=== PATIENT | female | born 1960 | race Caucasian/White ===

== ENCOUNTER → 2020-08-15 00:15 | Outpatient (CLI) | payer MEDICARE, OTHER, SELFPAY ==
[2020-08-15 17:12] LABS: SARS-CoV-2 RNA PCR Negative
== END ==
PROVIDERS: PCP Obstetrics & Gynecology; Visit Provider Urology
DX: Z01.812 Encounter for preprocedural laboratory examination (principal); Z20.822 Contact with and (suspected) exposure to COVID-19
CPT/HCPCS: C9803; U0003; U0005

== ENCOUNTER 2020-08-15 07:44 | Outpatient (CLI) | payer MEDICARE, OTHER, SELFPAY | END 2020-08-15 07:45 | disposition home or self-care (01) | PROVIDERS: Visit Provider Urology | DX: R32 Unspecified urinary incontinence (principal); Z01.818 Encounter for other preprocedural examination | CPT/HCPCS: 87086; 87088; C9803; U0003; U0005 ==

== ENCOUNTER 2020-08-18 00:46 | Day surgery (SDC) | payer MEDICARE, OTHER, SELFPAY ==
[2020-08-09 14:29] VITALS: BMI 24.0
--- NOTE | 2020-08-14 18:57 | P.HP_ITS ---
H&P: HPI History of Present Illness Date/Time: 08/14/20 18:57 60 yo with TYESHA Chief Complaint: umana Review of Systems Review of Systems: All systems reviewed & are unremarkable except as noted in HPI and below [facility] [place] Social History Social History Smoking status: Former smoker Tobacco type: cigarettes Smoking end date: 02/17/07 Additional smoking assessment comments: cigarrettes 1 ppd x20 years Alcohol intake: current Drinks per week: 2 Substance use: never Spiritual care concerns: No Meds Home Medications and Allergies Home Medications Medication Instructions Recorded Confirmed Type celecoxib 200 mg PO DAILY 08/09/20 08/09/20 History citalopram 20 mg PO DAILY 08/09/20 08/09/20 History lactobacillus combination no.4 3,000 mmu cells PO DAILY 08/09/20 08/09/20 History [Probiotic] mirabegron [Myrbetriq] 25 mg PO DAILY 08/09/20 08/09/20 History xwkzftghnznn-hec-qqch-FA-vit K 1 tab-cap PO DAILY 08/09/20 08/09/20 History [Multi For Her] sumatriptan succinate 50 mg PO PRN 08/09/20 08/09/20 History zolpidem [Ambien] 5 mg PO HS 08/09/20 08/09/20 History Allergies Allergy/AdvReac Type Severity Reaction Status Date / Time No Known Allergies Allergy Verified 08/09/20 14:09 Exam Const: General: cooperative HENMT: Head: normal to inspection Resp: Effort & Inspection: normal respiratory effort and able to speak in complete sentences Skin: General skin exam: normal color Psych: Appearance: grossly normal Assessment and Plan Assessment and plan (1) TYESHA (stress urinary incontinence, female): Code(s): N39.3 - Stress incontinence (female) (male) Status: Acute Assessment and Plan: urethral sling
[2020-08-18 05:57] VITALS: BP 121/73; PULSE 74; RESP 20; TEMP 36.2; O2SAT 98
[2020-08-18] MEDS: LACTATED RINGERS 1,000 ML 30 ML IV CONT (06:25)
--- NOTE | 2020-08-18 06:36 | WPDANESEPPF ---
Anes - Initial Pre Proc Eval Procedure: Operation Date: 08/18/20 07:30 Proposed Procedures p Urethral Sling - Rubén Robbins MD Date/Time: 08/18/20 06:36 Surgeon: Rubén Robbins MD Pre Op Diagnosis: stress incontinence Patient Data Age: 60 Gender: F Height: 1.63 m Weight: 63.7 kg Last Vital Signs Temp 36.2 C L 08/18/20 05:57 Pulse 74 08/18/20 05:57 Resp 20 08/18/20 05:57 BP 121/73 08/18/20 05:57 Pulse Ox 98 08/18/20 05:57 Allergies Allergy/AdvReac Type Severity Reaction Status Date / Time No Known Allergies Allergy Verified 08/18/20 06:12 Home Medications Medication Instructions Recorded Confirmed Type celecoxib 200 mg PO DAILY 08/09/20 08/18/20 History citalopram 20 mg PO DAILY 08/09/20 08/18/20 History lactobacillus combination no.4 3,000 mmu cells PO DAILY 08/09/20 08/18/20 History [Probiotic] mirabegron [Myrbetriq] 25 mg PO DAILY 08/09/20 08/18/20 History qizlvobpenfw-cdh-tqmr-FA-vit K 1 tab-cap PO DAILY 08/09/20 08/18/20 History [Multi For Her] sumatriptan succinate 50 mg PO PRN 08/09/20 08/09/20 History zolpidem [Ambien] 5 mg PO HS 08/09/20 08/18/20 History Patient hx anesthesia problems: none Family hx anesthesia problems: none [facility] Past Medical History Medical History (Updated 08/18/20 @ 06:40 by Timur Evans MD) Chronic back pain Surgical History Surgical History (Updated 08/18/20 @ 06:40 by Timur Evans MD) H/O cervical spine surgery H/O lumbosacral spine surgery Social History Social History Smoking status: Former smoker Tobacco type: cigarettes Smoking end date: 02/17/07 Additional smoking assessment comments: cigarrettes 1 ppd x20 years Alcohol intake: current Drinks per week: 2 Alcohol use details: socially Substance use: never Living arrangements: with family Spiritual care concerns: No Anes - Eval Final PreProcedure Day of Procedure 08/18/20 06:36 Patient weight: normal Heart: regular rate and rhythm Lungs: clear to auscultation Airway: Mallampati scale class 1 Neurological: alert and oriented Last oral intake: >/= 8 hours ASA classification: III Emergent: no Anesthetic plan: proceed Anesthesia type and monitoring: general GIVS and standard monitoring Informed Consent: The patient's anesthetic plan and its attendant risks and benefits were discussed with the patient/family/POA. Questions were solicited and answers provided to the satisfaction of the patient/family/POA.
--- NOTE | 2020-08-18 07:18 | WPDHPUPDATE1 ---
History and Physical Update Update Date/Time: 08/18/20 07:18 History and Physical has been reviewed, including an updated exam of the patient. There are NO changes in the patient's condition. Risks, benefits, and alternatives have been discussed and questions answered. Patient agrees to proceed with procedure.
[2020-08-18] MEDS: ceFAZolin 2 GM/D5W 50 ML 2 GM/50 ML BAG IVPB (07:28)
[2020-08-18] MEDS: BUPIVACAINE/EPINEPHRINE 0.25% 10 ML VIAL INFILTRATE (07:41)
[2020-08-18 08:05] VITALS: BP 111/69; PULSE 76; RESP 16; O2SAT 100
--- NOTE | 2020-08-18 08:08 | W.PM.PROC2 ---
Procedure Note - Detailed Date of Procedure 08/18/20 Pre-op Diagnosis stress incontinence Post-op Diagnosis same Procedure Performed mid urethral sling cystoscopy Surgeon Rubén Robbins MD Indications This is a female with confirm stress urinary incontinence. She desires surgical correction. She understands the risks of bleeding, infection, injury to the urinary tract, vaginal mesh extrusion, urinary tract mesh erosion, obstructive voiding requiring a secondary procedure, hip and leg pain, dyspareunia, inability to improve overactive bladder symptoms. She agrees to proceed. Description of Procedure She was correctly identified. Informed consent obtained. She was brought the operating room. She was given appropriate anesthesia. She was given appropriate perioperative antibiotics. A time-out performed. I marked out the site of the inner thigh incisions. I anesthetized the skin and made those incisions. I anesthetized the anterior vaginal wall over the mid urethra. I made a 1 cm incision. I dissected out laterally taking great care not to injure the refilled vaginal wall. I passed the helical trocars. First on the left. Then on the right. I did this from the thigh incision towards the vaginal incision. The sling was connected to the trocars and brought out through the thigh incision. I tensioned the sling appropriately. I cut and the plastic sheaths. I then closed the incision with 2 0 Vicryl. On cystoscopy there is no tumors or surgical artifact. There was no surgical artifact in the urethra. I cut the excess sling material. Close incisions with glue. She was awakened and transferred to the PACU in stable condition. Implants Urethral sling Drains No Packing No Pathology none sent Complications No immediate complications Condition stable Disposition PACU
[2020-08-18 08:35] VITALS: BP 131/76; PULSE 66; RESP 18
[2020-08-18 08:52] VITALS: BP 125/71; PULSE 69; RESP 18
== END 2020-08-18 08:56 | disposition home or self-care (01) ==
PROVIDERS: Visit Provider Urology
PROC: (CPT 57288; principal; 2020-08-18 07:30)
DX: N39.3 Stress incontinence (female) (male) (principal); Z87.891 Personal history of nicotine dependence
CPT/HCPCS: 57288; A9270; C1771; J0690; J1100; J1885; J2250; J2405; J2704; J3010; J7030; J7120